=== PATIENT | male | born 1965 | race Caucasian/White ===

== ENCOUNTER 2017-10-04 11:47 | Day surgery (SDC) | payer BC ==
[~2017-10-04] VITALS: Ht 185.4 cm; Wt 104.0 kg
[2017-10-04] MEDS ORDERED: HYDR10CA3 PO (12:15)
[2017-10-04 12:16] VITALS: BP 122/83
[2017-10-04] MEDS ORDERED: LACTATED RINGERS 1,000 ML IV SCH (12:17)
[2017-10-04] MEDS ORDERED: PLEASE ENTER HEIGHT AND WEIGHT MC SCH (12:30)
[2017-10-04] MEDS ORDERED: HYDR-3245 PO (12:33)
[2017-10-04] MEDS ORDERED: BUPIVACAINE/PF 0.5% ONE (13:17)
[2017-10-04] MEDS ORDERED: MIDAZOLAM 1 MG/ML, 2ML ONE (13:34)
[2017-10-04] MEDS ORDERED: FENTANYL PF 250 MCG/5ML ONE ×2 (13:35→13:55)
[2017-10-04] MEDS ORDERED: CEFAZOLIN 1,000 MG ONE (13:42)
[2017-10-04] MEDS ORDERED: ROCURONIUM 10 MG/ML ONE (13:42)
[2017-10-04] MEDS ORDERED: DEXAMETHASONE 4 MG/ML, 5ML ONE (13:42)
[2017-10-04] MEDS ORDERED: PROPOFOL 10 MG/ML, 20ML ONE (13:42)
[2017-10-04] MEDS ORDERED: ONDANSETRON 2MG/ML, 2ML ONE (13:42)
[2017-10-04] MEDS ORDERED: OXYcodone 5 MG/5 ML ORAL.SOL UDC PO PRN (14:00)
[2017-10-04] MEDS ORDERED: ACETAMINOPHEN 325 MG TABLET PO PRN (14:00)
[2017-10-04] MEDS ORDERED: ONDANSETRON 2MG/ML, 2ML IVPush PRN (14:00)
[2017-10-04] MEDS ORDERED: FENTANYL PF 100 MCG/2ML IV PRN (14:00)
[2017-10-04] MEDS ORDERED: MEPERIDINE/PF 25MG/0.5ML IVPush PRN (14:00)
[2017-10-04] MEDS ORDERED: HYDROmorphone 1 MG/ML, 1ML IV PRN (14:00)
[2017-10-04] MEDS ORDERED: FENTANYL PF 100 MCG/2ML ONE (15:06)
[2017-10-04] MEDS ORDERED: OXYcodone 5 MG/5 ML ORAL.SOL UDC ONE (15:06)
[2017-10-04] MEDS ORDERED: ACETAMINOPHEN 325 MG TABLET ONE (15:07)
== END 2017-10-04 16:30 ==
LOC: OUT 11:47
PROVIDERS: ATTEND Surgery
DX: K42.9 Umbilical hernia without obstruction or gangrene (principal)
CPT/HCPCS: 49585; J0690; J1100; J2250; J2405; J2704; J3010; J3490